=== PATIENT | female | born 1980 | race Caucasian/White ===

== ENCOUNTER 2017-02-18 22:04 | Emergency (ER) | payer OTHER ==
--- NOTE | 2017-02-18 22:08 | EDPHY ---
H & P HPI/ROS: HPI CHIEF COMPLAINT: Left leg injury HISTORY OF PRESENT ILLNESS: This patient is a very pleasant 36-year-old female she presents to the emergency room after she was pitching softball this evening and somebody hit a line drive softball directly into her left leg. She immediately fell to the ground. She has 10/10 pain. She is unable to bear weight. She is neurovascularly intact. She is complaining of 10 in 10 left anterior tib-fib pain. Sharp stabbing and shooting. She is declining any narcotics here but she is fine with ibuprofen. Past Medical History: No medical history except celiac disease Past Surgical History: No recent surgical history Social History: Denies daily use of drugs alcohol tobacco products. Family History: Noncontributory ROS REVIEW OF SYSTEMS: A comprehensive 10 point review of systems is otherwise negative aside from elements mentioned in the history of present illness. Exam Constitutional appears well nontoxic, triage nursing summary reviewed, vital signs reviewed, awake/alert. Eyes normal conjunctivae and sclera, EOMI, PERRLA. HENT normal inspection, atraumatic, moist mucus membranes, no epistaxis, neck supple/ no meningismus, no raccoon eyes. Respiratory clear to auscultation bilaterally, normal breath sounds, no respiratory distress, no wheezing. Cardiovascular rate normal, regular rhythm, no murmur, no edema, distal pulses normal. Gastrointestinal soft, non-tender, no rebound, no guarding, normal bowel sounds, no distension, no pulsatile mass. Genitourinary no CVA tenderness. Musculoskeletal left leg: Neurovascularly intact. Good distal pulse. Good cap refill, she is able to range her knee, ankle, foot. She has ecchymosis and tenderness to the anterior distal tibia region. No open injury. No signs of compartment syndrome. Compartments are soft. no midline vertebral tenderness, full range of motion, no calf swelling, no tenderness of extremities, no meningismus, good pulses, neurovascularly intact. Skin pink, warm, & dry, no rash, skin atraumatic. Neurologic awake, alert and oriented x 3, AAOx3, moves all 4 extremities equally, motor intact, sensory intact, CN II-XII intact, normal cerebellar, normal vision, normal speech. Psychiatric normal mood/affect. Heme/Lymph/Immune no lymphadenopathy. Differential Diagnosis: Includes but is not limited to in a particular order, perea contusion, tib-fib fracture, ankle fracture, hairline fracture Medical Decision Making: Plan for this patient ice pack, ibuprofen, she declined narcotic pain medicine here in the emergency room, x-ray of her left tib-fib as well as ankle. Re-evaluate. Re-evaluation: X-ray reviewed of the left tib-fib and ankle. No fracture visualized. However given the amount of pain the patient is having I feel that it is best to splint her put her in a posterior short-leg with stirrup. And on crutches. 2251: At this time there is no signs of compartment syndrome. She is neurovascularly intact. She still declining pain medicine narcotics here in the emergency room Plan for her will be splint for comfort, crutches, take-home pack of pain medicine and close orthopedic follow-up. I did give her strict return precautions and precautions on compartment syndrome. She understands if her toes feel numb she has increasing pain she should return emergency room. 2347: Post evaluation of splint neurovascularly intact. Good cap refill, warm extremity. Splint is appropriate. No signs of compartment syndrome. Return precautions given. She understands. Source: Patient - Medical/Surgical History Hx Asthma: No Hx Chronic Respiratory Disease: No Hx Diabetes: No Hx Cardiac Disease: No Hx Renal Disease: No Hx Cirrhosis: No Hx Alcoholism: No Hx HIV/AIDS: No Hx Splenectomy or Spleen Trauma: No - Social History Smoking Status: Never smoked Constitutional: Initial Vital Signs Temperature (C) 36.8 C 02/18/17 22:16 Heart Rate 72 02/18/17 22:16 Respiratory Rate 18 02/18/17 22:16 Blood Pressure 140/99 H 02/18/17 22:16 O2 Sat (%) 96 02/18/17 22:16 O2 Delivery Mode Room Air Allergies/Adverse Reactions: gluten Allergy (Verified 02/18/17 22:19) topiramate [From Topamax] Allergy (Verified 02/18/17 22:19) Home Medications: Medication Instructions Recorded Control 02/18/17 Hydrocodone/APAP 5/325 [[place] 1 - 2 tab PO Q4H PRN #10 tab 02/18/17 5/325] Ibuprofen [Motrin (*)] 800 mg PO Q6-8PRN #10 tab 02/18/17 Medical Decision Making - Diagnostics Imaging Results: Imaging Impressions Ankle X-Ray 02/18/17 22:14 Impression: Nothing acute identified. 2. Left Tibia-Fibula, 2 views History: Pain post trauma, hit by softball. Findings: No fracture or malalignment is identified. There is proximal pretibial soft tissue swelling. The underlying cortex is intact. Impression: No fracture. Tibia/Fibula X-Ray 02/18/17 22:14 Impression: Nothing acute identified. 2. Left Tibia-Fibula, 2 views History: Pain post trauma, hit by softball. Findings: No fracture or malalignment is identified. There is proximal pretibial soft tissue swelling. The underlying cortex is intact. Impression: No fracture. - Data Points Medications Given: Discontinued Medications Ibuprofen (Motrin) 800 mg PO EDNOW ONE Stop: 02/18/17 22:15 Last Admin: 02/18/17 22:21 Dose: 800 mg Departure - Departure Disposition: Home, Routine, Self-Care Clinical Impression: Contusion of leg, left Qualifiers: Encounter type: initial encounter Qualified Code(s): S80.12XA - Contusion of left lower leg, initial encounter Condition: Good Instructions: Contusion in Adults (ED) Additional Instructions: 1. Keep your leg elevated. 2. Ice your leg. 3. Do not get your splint wet. 4. Return emergency room if you have worsening pain numbness or tingling. 5. Please call Orthopedics and set up a follow-up appointment. Referrals: ADONIS ESTRADA [Other] - As per Instructions Tarik iRley MD [Medical Doctor] - As per Instructions Prescriptions: Hydrocodone/APAP 5/325 [[place] 5/325] 1 - 2 tab PO Q4H PRN #10 tab PRN Reason: Pain, Moderate Ibuprofen [Motrin (*)] 800 mg PO Q6-8PRN #10 tab
[2017-02-18] MEDS ORDERED: IBUPROFEN 200 MG TAB PO ONE (22:14)
[2017-02-18 22:19] VITALS: TEMP 98.2
[2017-02-18] MEDS ORDERED: HYDROCOD/APAP 5/325 PREPACK#6 BTL TAKEHOME ONE (23:48)
[2017-02-19 00:06] VITALS: BP 115/77; PULSE 56; RESP 16; O2SAT 97
== END 2017-02-19 00:06 | disposition home or self-care (01) ==
DX: S80.12XA Contusion of left lower leg, initial encounter (principal); W21.07XA Struck by softball, initial encounter; Y99.8 Other external cause status; Y93.64 Activity, baseball

== ENCOUNTER 2018-11-29 20:20 | Emergency (ER) | payer OTHER | END 2018-11-29 21:50 | disposition home or self-care (01) ==